=== PATIENT | female | born 1950 | race Caucasian/White ===

== ENCOUNTER 2023-05-27 11:41 | Emergency (ER) | payer MEDICARE | END 2023-05-27 14:06 | disposition home or self-care (01) | LOC: CSHERS 11:41 | DX: S00.83XA Contusion of other part of head, initial encounter (principal); S63.602A Unspecified sprain of left thumb, initial encounter; I10 Essential (primary) hypertension; I48.91 Unspecified atrial fibrillation; W18.12XA Fall from or off toilet with subsequent striking against object, initial encounter | CPT/HCPCS: 70450 ==

== ENCOUNTER 2023-07-04 13:14 | Emergency (ER) | payer OTHER, MEDICARE ==
[2023-07-04 14:50] LABS: ALT (SGPT) 10 U/L (8-55); AST (SGOT) 15 U/L (5-34); Albumin 3.5 g/dL (3.4-4.8); Alkaline Phosphatase 61 U/L (40-110); Anion Gap 12 mmol/L (10-20); BUN (Urea Nitrogen) 12 mg/dL (9.8-20.1); Bilirubin, Total 0.6 mg/dL (0.2-1.2); Calc. Creatinine Clearance 0 mL/min (70-130); Calcium 8.4 mg/dL (7.8-10.44); Carbon Dioxide 23 mmol/L (23-31); Chloride 103 mmol/L (98-107); Estimated GFR 52; Globulin 2.4 g/dL (2.4-3.5); Glucose 80 mg/dL (83-110); Potassium 3.9 mmol/L (3.5-5.1); Protein, Total 5.9 g/dL (5.8-8.1); Sodium 134 mmol/L (136-145)
[2023-07-04 14:56] LABS: Troponin I Less than 0.010 ng/mL (< 0.028)
[2023-07-04 14:57] LABS: Hematocrit 32.2 % (34.9-44.5); Hemoglobin 10.7 g/dL (12.0-15.5); Mean Corpuscular HGB CONC 33.2 g/dL (32.0-36.0); Mean Corpuscular Hemoglobin 32.3 pg (27.0-33.0); Mean Corpuscular Volume 97.3 fl (81.6-98.3); Mean Platelet Volume 9.6 fl (7.4-10.4); Platelet Count 178 10x3/uL (150-450); RBC Distribution Width 14.6 % (11.5-14.5); Red Blood Cell (RBC) Count 3.31 10x6/uL (3.90-5.03); White Blood Cell (WBC) Count 2.5 10x3/uL (3.5-10.5)
[2023-07-04 15:16] LABS: Bilirubin Neg (Negative); Blood, Urine Negative (Negative); Clarity Clear (Clear); Glucose, Urine (Dipstick) Normal (Negative); Ketone, Urine Negative (Negative); Leukocyte 500 (Negative); Nitrite Positive (Negative); Protein, Urine (Dipstick) Negative (Neg-Trace); Specific Gravity, Urine 1.015 (1.005-1.030); Urobilinogen Normal mg/dL (Less than 2)
[2023-07-04 15:18] LABS: MDiff Complete? YES
[2023-07-04 15:28] LABS: Lymphocytes 62 % (21-51); Monocytes 16 % (0-10); Neutrophil 19 % (42-75); Reactive Lymphocytes 2 % (0-10)
[2023-07-04 15:32] LABS: Platelet Adequacy Comment Appears Adequate; RBC Morph Comment Within Normal Limits
[2023-07-04 15:47] LABS: CAUTI Indications for Culture Dysuria,urgency,freq; RBC/HPF None Seen HPF (0-3)
[2023-07-04 15:48] LABS: Bacteria/HPF 3+ HPF (None Seen); Squamous Epithelial 0-3 HPF (0-3)
[2023-07-04 15:50] LABS: Urine Culture Reflex Yes Yes
== END 2023-07-04 15:45 | disposition home or self-care (01) ==
LOC: CSHERS 13:14
DX: S00.83XA Contusion of other part of head, initial encounter (principal); N39.0 Urinary tract infection, site not specified; W01.10XA Fall on same level from slipping, tripping and stumbling with subsequent striking against unspecified object, initial encounter
CPT/HCPCS: 36415; 70450; 71045; 72125; 80053; 81001; 84484; 85025; 87077; 87086; 87186; 93005

== ENCOUNTER 2023-07-10 23:14 | Emergency (ER) | payer MEDICARE ==
[2023-07-11] MEDS ORDERED: Cephalexin 250 MG CAP ONE (04:32)
== END 2023-07-11 05:00 | disposition home or self-care (01) ==
LOC: CSHERS 23:14
DX: M79.81 Nontraumatic hematoma of soft tissue (principal); L02.416 Cutaneous abscess of left lower limb; K21.9 Gastro-esophageal reflux disease without esophagitis; I10 Essential (primary) hypertension; Z79.899 Other long term (current) drug therapy

== ENCOUNTER 2023-08-02 12:13 | Emergency (ER) | payer MEDICARE ==
[2023-08-02 13:06] LABS: Hemoglobin 11.2 g/dL (12.0-15.5); MDiff Complete? YES; Mean Corpuscular HGB CONC 32.9 g/dL (32.0-36.0); Mean Corpuscular Hemoglobin 31.3 pg (27.0-33.0); Mean Platelet Volume 10.7 fl (7.4-10.4); Platelet Count 130 10x3/uL (150-450); RBC Distribution Width 13.7 % (11.5-14.5); Red Blood Cell (RBC) Count 3.58 10x6/uL (3.90-5.03); White Blood Cell (WBC) Count 2.4 10x3/uL (3.5-10.5)
[2023-08-02] MEDS ORDERED: Ondansetron PF 4 MG/2 ML Vial ONE (13:08)
[2023-08-02 13:10] LABS: ALT (SGPT) 8 U/L (8-55); AST (SGOT) 13 U/L (5-34); Albumin 3.6 g/dL (3.4-4.8); Alkaline Phosphatase 51 U/L (40-110); Anion Gap 13 mmol/L (10-20); BUN (Urea Nitrogen) 11 mg/dL (9.8-20.1); Bilirubin, Total 1.2 mg/dL (0.2-1.2); Calc. Creatinine Clearance 0 mL/min (70-130); Calcium 8.2 mg/dL (7.8-10.44); Carbon Dioxide 23 mmol/L (23-31); Chloride 100 mmol/L (98-107); Estimated GFR 61; Globulin 2.9 g/dL (2.4-3.5); Glucose 94 mg/dL (83-110); Potassium 3.5 mmol/L (3.5-5.1); Protein, Total 6.5 g/dL (5.8-8.1); Sodium 132 mmol/L (136-145)
[2023-08-02 13:31] LABS: Band 11 % (5-11); Lymphocytes 37 % (21-51); Monocytes 6 % (0-10); Neutrophil 42 % (42-75); Reactive Lymphocytes 4 % (0-10)
[2023-08-02 13:33] LABS: Polychromasia SLIGHT = 2-3 cells (100X) (0-2/hpf)
[2023-08-02 13:34] LABS: Large Platelets SLIGHT (None Seen); Ovalocytes SLIGHT = 2-5 cells (100X) (0-1/hpf); Platelet Adequacy Comment Appears Decreased
[2023-08-02 13:37] LABS: Bilirubin Neg (Negative); Blood, Urine 25 (Negative); Glucose, Urine (Dipstick) Normal (Negative); Ketone, Urine Negative (Negative); Leukocyte 500 (Negative); Nitrite Negative (Negative); Protein, Urine (Dipstick) 30 mg/dl (Neg-Trace); Urobilinogen Normal mg/dL (Less than 2)
[2023-08-02 13:42] LABS: Magnesium 1.6 mg/dL (1.6-2.6)
[2023-08-02 13:45] LABS: Clarity Hazy (Clear)
[2023-08-02 13:48] LABS: CAUTI Indications for Culture Immunosuppressed; RBC/HPF 0-3 HPF (0-3)
[2023-08-02 13:49] LABS: Bacteria/HPF 2+ HPF (None Seen); Squamous Epithelial 0-3 HPF (0-3)
[2023-08-02 13:50] LABS: Urine Culture Reflex Yes Yes
[2023-08-02 13:57] LABS: SARS-CoV-2 NAA Rapid Test DETECTED (NotDetected)
[2023-08-02] MEDS ORDERED: cefTRIAXone (ROCEPHIN) 1 GM VIAL ONE (13:58)
[2023-08-02 15:07] LABS: Toxic Granulation SLIGHT; Vacuoles SLIGHT
== END 2023-08-02 16:09 | disposition home or self-care (01) ==
LOC: CSHERS 12:13
DX: U07.1 COVID-19 (principal); C90.00 Multiple myeloma not having achieved remission; N39.0 Urinary tract infection, site not specified; I10 Essential (primary) hypertension; K21.9 Gastro-esophageal reflux disease without esophagitis; I48.91 Unspecified atrial fibrillation; Z79.01 Long term (current) use of anticoagulants; Z20.822 Contact with and (suspected) exposure to COVID-19
CPT/HCPCS: 0240U; 71045; 80053; 81001; 83605; 83735; 85025; 87040; 87077; 87086; 87186; 93005; 96374; 96375; 99284; 36415; 93010; J0696; J2405